=== PATIENT | female | born 1990 | race Two or more races ===

== ENCOUNTER 2018-09-15 14:56 | Emergency (ER) | payer OTHER ==
[2018-09-15] MEDS ORDERED: VALACYCLOVIR HCL 500 MG TABLET PO ONE (15:36)
[2018-09-15] MEDS ORDERED: LIDOCAINE 1% INJ-PF (10 MG/ML) 30 ML SDV INJ ONE (15:36)
[2018-09-15] MEDS ORDERED: CEFTRIAXONE INJ 250 MG VIAL IM ONE (15:36)
[2018-09-15] MEDS ORDERED: AZITHROMYCIN 250 MG TABLET PO ONE (15:36)
--- NOTE | 2018-09-15 15:54 | ER Document Report ---
ED GI/ - General Chief Complaint: Rash Stated Complaint: VAGINAL IRRITATION Time Seen by Provider: 09/15/18 15:07 Mode of Arrival: Ambulatory Information source: Patient Notes: 28-year-old female presented to ED for complaint of rash to her vaginal and rectal area. She also has burning and irritation. She is concerned about the rash. She denies any urinary symptoms no frequency urgency burning. She denies any medication. She denies any past medical history except for left ACL repair. Patient is concerned because she is supposed to deployed at [employer] tomorrow. Patient is alert and oriented his regular and unlabored speaking in full sentences. TRAVEL OUTSIDE OF THE [place] IN LAST 30 DAYS: No - HPI Patient complains to provider of: Vaginal discharge, Vaginal pain, Other - Vaginal rash Onset: Yesterday Timing/Duration: Gradual Quality of pain: Burning Severity at maximum: Moderate Severity in ED: Moderate Pain Level: 3 Location: Vaginal Sexual history: control pills Associated symptoms: Vaginal discharge, Other - Vaginal rash a few vesicles around the anus Exacerbated by: Other - Sexual intercourse Relieved by: Denies Similar symptoms previously: No Recently seen / treated by doctor: No - Related Data Allergies/Adverse Reactions: No Known Allergies Allergy (Unverified 09/15/18 15:02) Past Medical History - General Information source: Patient - Social History Smoking Status: Never Smoker Cigarette use (# per day): No Chew tobacco use (# tins/day): No Smoking Education Provided: No Frequency of alcohol use: Social Drug Abuse: None Occupation: active duty Lives with: Spouse/Significant other Family History: Reviewed & Not Pertinent Patient has suicidal ideation: No Patient has homicidal ideation: No - Past Medical History Cardiac Medical History: Reports: None Pulmonary Medical History: Reports: None EENT Medical History: Reports: None Neurological Medical History: Reports: None Endocrine Medical History: Reports: None Renal/ Medical History: Reports: None Malignancy Medical History: Reports: None GI Medical History: Reports: None Musculoskeletal Medical History: Reports Hx Musculoskeletal Trauma Skin Medical History: Reports None Psychiatric Medical History: Reports: None Traumatic Medical History: Reports: None Infectious Medical History: Reports: None Past Surgical History: Reports: Hx Orthopedic Surgery - left knee - Immunizations Immunizations up to date: Yes Hx Diphtheria, Pertussis, Tetanus Vaccination: Yes - Active-duty Review of Systems - Review of Systems Constitutional: No symptoms reported EENT: No symptoms reported Cardiovascular: No symptoms reported Respiratory: No symptoms reported Gastrointestinal: No symptoms reported Genitourinary: No symptoms reported Female Genitourinary: Vaginal discharge, Other - Vaginal and rectal vesicles Musculoskeletal: No symptoms reported Skin: No symptoms reported Hematologic/Lymphatic: No symptoms reported Neurological/Psychological: No symptoms reported -: Yes All other systems reviewed and negative Physical Exam - Vital signs Vitals: Temp Pulse Resp BP Pulse Ox 97.8 F 79 16 129/74 H 100 09/15/18 15:15 09/15/18 15:15 09/15/18 15:15 09/15/18 15:15 09/15/18 15:15 Interpretation: Normal - General General appearance: Appears well, Alert - HEENT Head: Normocephalic, Atraumatic Eyes: Normal Pupils: PERRL - Respiratory Respiratory status: No respiratory distress Chest status: Nontender Breath sounds: Normal Chest palpation: Normal - Cardiovascular Rhythm: Regular Heart sounds: Normal auscultation Murmur: No - Abdominal Inspection: Normal Distension: No distension Bowel sounds: Normal Tenderness: Nontender Organomegaly: No organomegaly - Rectal Tenderness: Yes - Vesicles noted around anus - Genitourinary External exam: Vesicles Speculum exam: Vaginal discharge - Back Back: Normal, Nontender - Extremities General upper extremity: Normal inspection, Nontender, Normal color, Normal ROM , Normal temperature General lower extremity: Normal inspection, Nontender, Normal color, Normal ROM , Normal temperature, Normal weight bearing. No: Hal's sign - Neurological Neuro grossly intact: Yes Cognition: Normal Orientation: AAOx4 [place] Coma Scale Eye Opening: Spontaneous [place] Coma Scale Verbal: Oriented [place] Coma Scale Motor: Obeys Commands Hever Coma Scale Total: 15 Speech: Normal Motor strength normal: LUE, RUE, LLE, RLE Sensory: Normal - Psychological Associated symptoms: Normal affect, Normal mood - Skin Skin Temperature: Warm Skin Moisture: Dry Skin Color: Normal Course - Re-evaluation Re-evalutation: 09/15/18 16:36 Patient came to the ED for lesions to the vaginal area itching to the vaginal area vaginal discharge. She does have vesicles to the vaginal area and rectal area and a herpes sample was sent to the lab. She was also tested for GC chlamydia and wet mount. Wet mount did come back with BV and yeast patient will call back to the emergency room for the results of her GC and chlamydia. She has been instructed to give phone number and email address and a family member who can get the results for the herpes culture as she will be deploying to [facility] tomorrow in the . 09/15/18 20:18 Patient did call back and received the results of the GC and chlamydia which were negative. - Vital Signs Vital signs: Temp Pulse Resp BP Pulse Ox 98 F 75 18 142/78 H 98 09/15/18 16:04 09/15/18 16:04 09/15/18 16:04 09/15/18 16:04 09/15/18 16:04 Discharge - Discharge Clinical Impression: Vaginal lesion, Bacterial vaginosis, Yeast vaginitis Condition: Stable Disposition: HOME, SELF-CARE Additional Instructions: VAGINOSIS, BACTERIAL: Your exam shows you have bacterial vaginosis. This condition is due to an overgrowth of bacteria in the vagina. Symptoms may include vaginal itching or pain, a smelly discharge, and sometimes burning with urination. Normally this is not transmitted by sexual contact. Vaginosis can be treated with oral or topical antibiotics. Metronidazole ( Flagyl) pills are usually effective. Topical vaginal creams include Cleocin and Metro-Gel. You should avoid sexual contact until your symptoms are all better. Call the doctor if you develop pelvic pain, fever, or problems with urination, or if you don't improve as expected. VAGINAL YEAST INFECTION: You have evidence of a yeast infection -- called "reynold." A vaginal yeast infection often causes itching and discharge. While not dangerous, it can be very unpleasant. A yeast infection often follows the use of powerful antibiotics. It is more likely to occur in diabetics. The treatment now is usually a single pill of Diflucan, but also an antifungal cream or suppository may be used for a few days. You do not need to avoid sexual intercourse. Recurrences are common. You can make a recurrence less likely by wearing cotton underwear and avoiding tight clothing. For mild recurrences, you can try [id number] creams or suppositories that are made specifically for yeast. If the symptoms do not resolve, you should follow up for re-examination. Sometimes treatment of the sexual partner is necessary if infections are recurrent. Genital Herpes Your exam suggests that you have a herpes infection. A culture can confirm the diagnosis. Herpes is caused by a virus, and can be transmitted sexually. After the initial infection has healed, the virus often erupts at the same location from time to time. Herpes can be treated with anti-viral medication. The medicine can be used as pills or ointment. It's most effective if started with the first symptoms of the attack. It is not a "cure" -- it simply shortens the length of the illness. If this is not your first attack, the medicine may not help you. In the female, herpes can infect the baby as it passes through the canal, causing a life-threatening disease. You should inform the classified ad taker that you've had herpes should you (or your spouse) become . Sexual contact should be avoided any time the sores are present, but the virus may be contagious even at other times. The use of condoms may help prevent infection in your partner. CEPHALOSPORINS: An antibiotic of the cephalosporin class has been prescribed. This type of antibiotic covers a wide variety of infections, including those of the skin, lungs, middle ear, and urinary tract. This antibiotic is somewhat similar to the penicillin family. In rare cases , a person who is allergic to penicillin will also be allergic to this medication. If you have had a severe allergic reaction to penicillin, and have not taken this antibiotic since that time, notify your doctor. Antibiotics which cover many germs ("broad spectrum" antibiotics) are more likely to cause diarrhea or "yeast" infections. Women prone to vaginal yeast problems may suffer an attack after taking this antibiotic. In infants, oral thrush (white spots "stuck" on the cheek) or yeast diaper rash may result. See your doctor if these problems occur. Call the doctor at once if you develop hives, itching, shortness of breath , or lightheadedness. AZITHROMYCIN: Azithromycin (Zithromax) is a broad spectrum antibiotic in the same class as erythromycin. It can treat a variety of bacterial infections, but is most frequently used for respiratory infections. Azithromycin is extremely long-lasting. It accumulates in body tissues and continues to kill bacteria for many days. In order to improve absorption, Azithromycin should be taken at least one hour before or two hours after a meal. It does not have the same strong tendency to upset the stomach as erythromycin and is usually very well tolerated. Patients who have had a rash or other true allergic reactions to erythromycin should not take this medication. Call if you develop gastrointestinal distress, severe diarrhea, rash, hives, itching, or shortness of breath. METRONIDAZOLE: Metronidazole (Flagyl) has been prescribed. This medication is used to kill a type of bacteria called anaerobes, and protozoan parasites such as trichomonas and Giardia. Flagyl often causes a metallic taste in the mouth and mild nausea. Do not use alcohol in any form with Flagyl (including alcohol in medication elixirs). Flagyl interacts with alcohol to cause flushing, palpitations, headache, stomach cramps, and vomiting. Do not use Flagyl if you are taking Antabuse (disulfiram). Call the doctor at once if you develop rash, shortness of breath, itching, or lightheadedness. FLUCONAZOLE: Fluconazole (Diflucan) is an antifungal drug. It is useful for serious fungal infections, but is also excellent for oral or vaginal yeast infections. Diflucan interacts with some medicines. This is a concern if you are taking anticoagulants (such as Coumadin), phenytoin (Dilantin), cyclosporin, or oral hypoglycemics (such as tolbutamide, Orinase, glipizide, Glucotrol, glyburide, DiaBeta, Glynase, and Micronase). Be sure the doctor knows if you are taking one of these medicines. We don't know how Diflucan affects . If you are planning to become , discuss this with your doctor. Diflucan has few side effects. Minor side effects may include nausea, headache, or diarrhea. Call the doctor if you develop a skin rash, shortness of breath, or other new symptoms. FOLLOW-UP CARE: If you have been referred to a physician for follow-up care, call the physician s office for an appointment as you were instructed or within the next two days. If you experience worsening or a significant change in your symptoms, notify the physician immediately or return to the Emergency Department at any time for re-evaluation. Prescriptions: Fluconazole [Diflucan] 150 mg PO ONCE PRN #2 tablet PRN Reason: Metronidazole [Flagyl 500 mg Tablet] 500 mg PO BID #14 tablet Valacyclovir HCl [Valtrex] 1,000 mg PO BID #20 tablet Forms: Elevated Blood Pressure
[2018-09-15 15:56] LABS: BACTERIA (WET MOUNT) 3+ BACTERIA SEEN; EPITHELIALS (WET MOUNT) 4+ EPITHELIALS SEEN; RBCS (WET MOUNT) RARE RBCS SEEN; T.VAGINALIS (WET MOUNT) NO TRICHOMONAS SEEN; WBCS (WET MOUNT) 2+ WBCS SEEN; YEAST (WET MOUNT) YEAST SEEN
[2018-09-15 16:04] VITALS: BP 142/78
[2018-09-15] MEDS ORDERED: METRONIDAZOLE 500 MG TABLET PO ONE (16:24)
[2018-09-15 17:11] LABS: CHLAM PCR NOT DETECTED (NOT DETECT); GON PCR NOT DETECTED (NOT DETECT)
== END 2018-09-15 16:47 | disposition home or self-care (01) ==
LOC: ER 14:56
DX: N76.0 Acute vaginitis (principal); B96.89 Other specified bacterial agents as the cause of diseases classified elsewhere; B37.3 Candidiasis of vulva and vagina
CPT/HCPCS: 99283; 96372; 87210; 87250; 87491; 87591; J3490; J0696

== ENCOUNTER 2019-03-18 09:16 | Emergency (ER) | payer OTHER ==
--- NOTE | 2019-03-18 09:55 | ER Document Report ---
ED Medical Screen (RME) - General Chief Complaint: Vaginal Discharge Stated Complaint: VAGINAL DISCHARGE Time Seen by Provider: 03/18/19 09:53 Mode of Arrival: Ambulatory Information source: Patient Notes: 28-year-old female presents to ED for complaint of itchy discomfort in her vagina now. She states that her last menstrual period started on 4 7. States that usually last 4 days but this 1 lasted about 7 and then since her periods stopped she has had clumpy kimball discharge with no odor but has had a lot of itching and discomfort inside since then. She states this is totally unusual fo r her. She states she is also has genital herpes and she does not know if this is a new outbreak of genital herpes and she needs to be examined to see was going on. Patient is alert oriented respirations regular and unlabored speaking in full sentences. I have greeted and performed a rapid initial assessment of this patient. A comprehensive ED assessment and evaluation of the patient, analysis of test results and completion of medical decision making process will be conducted by an additional ED providers. TRAVEL OUTSIDE OF THE [place] 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
[2019-03-18 10:40] LABS: APPEARANCE,URINE CLEAR; BILIRUBIN,URINE NEGATIVE (NEGATIVE); COLOR,URINE YELLOW; GLUCOSE, URINE NEGATIVE (NEGATIVE); KETONES,URINE NEGATIVE (NEGATIVE); LEUKOCYTE ESTERASE,URINE NEGATIVE (NEGATIVE); NITRITE,URINE NEGATIVE (NEGATIVE); PROTEIN,URINE NEGATIVE (NEGATIVE); URINE SPECIFIC GRAVITY 1.024; UROBILINOGEN,URINE NEGATIVE mg/dL (<2.0)
[2019-03-18 11:11] LABS: T.VAGINALIS (WET MOUNT) NO TRICHOMONAS SEEN; WBCS (WET MOUNT) FEW WBCS SEEN; YEAST (WET MOUNT) YEAST SEEN
--- NOTE | 2019-03-18 11:11 | ER Document Report ---
ED General - General Chief Complaint: Vaginal Discharge Stated Complaint: VAGINAL DISCHARGE Time Seen by Provider: 03/18/19 09:53 Mode of Arrival: Ambulatory TRAVEL OUTSIDE OF THE [place] IN LAST 30 DAYS: No - HPI Notes: Patient is a 28-year-old female that presents to the emergency department for chief complaint of vaginal discharge. Patient reports 4 days have thick white vaginal discharge. She states she has some itching and irritation of her vagina. She did have intercourse yesterday that was unprotected and states it was uncomfortable. She denies associated vaginal bleeding. LMP was about a week ago. She denies history of or concern for currently. She is sexually active without protection and is concerned for possible STDs. She reports a history of herpes simplex and denies any painful active lesions currently. Patient does states she has had yeast infections and states this feels similar. She denies associated fevers and urinary complaints Past Medical History: Herpes Past Surgical History: Vaginal cyst removal Social History: Occasional alcohol. Denies tobacco and drug use Family History: Reviewed and noncontributory for presenting illness Allergies: Reviewed, see documented allergy list. REVIEW OF SYSTEMS: CONSTITUTIONAL : No fever No chills No diaphoresis No recent illness EENT: No vision changes No congestion No sore throat CARDIOVASCULAR: No chest pain No palpitations RESPIRATORY: No shortness of breath No cough No difficulty breathing GASTROINTESTINAL: No abdominal pain No nausea No vomiting No diarrhea GENITOURINARY: Vaginal discharge No dysuria No hematuria No difficulty urinating MUSCULOSKELETAL: No back pain No leg pain No arm pain SKIN: No rashes No lesions LYMPHATIC: No swollen, enlarged glands. NEUROLOGICAL: No lightheadedness No headache No weakness No paresthesias PSYCHIATRIC: No anxiety No depression PHYSICAL EXAMINATION: Vital signs reviewed, nursing noted reviewed. GENERAL: Well-appearing, well-nourished and in no acute distress. HEAD: Atraumatic, normocephalic. EYES: Eyes appear normal, extraocular movements intact, sclera anicteric, conjunctiva are normal. ENT: nares patent, oropharynx clear without exudates. Moist mucous membranes. NECK: Normal range of motion, supple without lymphadenopathy LUNGS: Breath sounds clear to auscultation bilaterally and equal. No wheezes rales or rhonchi. HEART: Regular rate and rhythm without murmurs ABDOMEN: Soft, nontender, normoactive bowel sounds. No rebound, guarding, or rigidity. No masses appreciated. : Normal external vaginal genitalia with no active herpetic appearing lesions. Thick white vaginal discharge. No cervical motion tenderness or lesions. No adnexal tenderness or fullness. Uterus soft, midline and nontender. No vaginal bleeding tender EXTREMITIES: Nontender, good range of motion, no pitting or edema. NEUROLOGICAL: No focal neurological deficits. Moves all extremities spontaneously Motor and sensory grossly intact on exam. PSYCH: Normal mood, normal affect. SKIN: Warm, Dry, normal turgor, no rashes or lesions noted on exposed skin - Related Data Allergies/Adverse Reactions: No Known Allergies Allergy (Verified 03/18/19 09:19) Past Medical History - General Information source: Patient - Social History Smoking Status: Never Smoker Chew tobacco use (# tins/day): No Frequency of alcohol use: None Drug Abuse: None Family History: Reviewed & Not Pertinent Patient has suicidal ideation: No Patient has homicidal ideation: No Renal/ Medical History: Denies: Hx Peritoneal Dialysis Musculoskeletal Medical History: Reports Hx Musculoskeletal Trauma Past Surgical History: Reports: Hx Orthopedic Surgery - left knee - Immunizations Immunizations up to date: Yes Hx Diphtheria, Pertussis, Tetanus 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 Nursing notes reviewed. 03/18/19 11:22 Patient's pelvic exam is consistent with yeast infection. She has positive for yeast on testing. There is no bacterial vaginitis or trichomonas. Gonorrhea and Chlamydia cultures are currently pending however she has no discharged or pain concerning for acute infection to suggest prophylactic treatment as indicated. Patient will call in 24 hours for her testing results. [facility] She was given Diflucan for yeast infection. Laboratory 03/18/19 03/18/19 10:05 10:57 Urine Color YELLOW Urine Appearance CLEAR Urine pH 6.0 Ur Specific [place] 1.024 Urine Protein NEGATIVE Urine Glucose (UA) NEGATIVE Urine Ketones NEGATIVE Urine Blood NEGATIVE Urine Nitrite NEGATIVE Urine Bilirubin NEGATIVE Urine Urobilinogen NEGATIVE Ur Leukocyte Esterase NEGATIVE Urine WBC (Auto) 1 Urine RBC (Auto) 1 Squamous Epi Cells Auto 1 Urine Mucus (Auto) OCC Urine Ascorbic Acid 40 H Urine HCG, Qual NEGATIVE Trichomonas (Wet Prep) NO TRICHOMONAS SEEN Vaginal WBC FEW WBCS SEEN Vaginal RBC FEW RBCS SEEN Vaginal Yeast YEAST SEEN - Vital Signs Vital signs: Temp Pulse Resp BP Pulse Ox 98.2 F 62 16 135/73 H 100 03/18/19 09:23 03/18/19 09:23 03/18/19 09:23 03/18/19 09:23 03/18/19 09:23 - Laboratory Laboratory results interpreted by me: 03/18/19 10:05 Urine Ascorbic Acid 40 H Discharge - Discharge Clinical Impression: Yeast vaginitis Condition: Stable Disposition: HOME, SELF-CARE Instructions: Vaginal Yeast Infection ([facility]) Additional Instructions: Please return to the emergency department if you have any worsening, or concern of your symptoms. Please return to the emergency department if you develop chest pain, difficulty breathing, severe abdominal pain, or ongoing vomiting. Please follow-up with your primary care physician in 2-3 days and any other recommended physicians. If prescribed, take all medications as directed. If you have any questions or concerns do not hesitate to return the emergency department for evaluation. Gonorrhea and Chlamydia testing was performed today and is not resulted. Call in 24 hours for your results Prescriptions: Fluconazole [Diflucan] 150 mg PO ONCE PRN #1 tablet PRN Reason: Referrals: [facility] [Provider Group] - Follow up in 1 week
[2019-03-18 11:12] LABS: RBCS (WET MOUNT) FEW RBCS SEEN
[2019-03-18] MEDS ORDERED: FLUCONAZOLE 100 MG TABLET PO ONE (11:23)
[2019-03-18 11:32] VITALS: BP 132/62
[2019-03-18 12:06] LABS: CHLAM PCR NOT DETECTED (NOT DETECT); GON PCR NOT DETECTED (NOT DETECT)
== END 2019-03-18 11:37 | disposition home or self-care (01) ==
LOC: ER 09:16
DX: B37.3 Candidiasis of vulva and vagina (principal); A60.00 Herpesviral infection of urogenital system, unspecified; N89.8 Other specified noninflammatory disorders of vagina
CPT/HCPCS: 81001; 81025; 87210; 87491; 87591; 99283

== ENCOUNTER 2019-04-26 09:51 | Emergency (ER) | payer OTHER ==
[2019-04-26] MEDS ORDERED: DOCUSATE SODIUM 100 MG CAPSULE BTH_EAR ONE (10:29)
--- NOTE | 2019-04-26 10:30 | ER Document Report ---
ED ENT - General Chief Complaint: Ear Pain Stated Complaint: LEFT EAR PAIN Time Seen by Provider: 04/26/19 10:11 Mode of Arrival: Ambulatory Information source: Patient Notes: 28-year-old female presented to ED for complaint of left ear pain for 2 days along with pain to the left jaw. She also has a congested nose. Patient is alert oriented respirations regular and unlabored speaking in full sentences walks with even steady gait. TRAVEL OUTSIDE OF THE [place] IN LAST 30 DAYS: No - HPI Patient complains to provider of: Ear problem Onset: Other Onset/Duration: Gradual - 2 days Quality of pain: Achy Severity: Moderate Pain Level: 2 Context: Recent Illness Location of pain: Ears Associated symptoms: Ear pain Similar symptoms previously: Yes - Related Data Allergies/Adverse Reactions: No Known Allergies Allergy (Verified 04/26/19 09:52) Past Medical History - General Information source: Patient - Social History Smoking Status: Never Smoker Chew tobacco use (# tins/day): No Frequency of alcohol use: None Drug Abuse: None Lives with: Family Family History: Reviewed & Not Pertinent Patient has suicidal ideation: No Patient has homicidal ideation: No - Past Medical History Cardiac Medical History: Reports: None Pulmonary Medical History: Reports: None EENT Medical History: Reports: None Neurological Medical History: Reports: None Endocrine Medical History: Reports: None Renal/ Medical History: Reports: None Malignancy Medical History: Reports: None GI Medical History: Reports: None Musculoskeletal Medical History: Reports Hx Musculoskeletal Trauma Skin Medical History: Reports None Psychiatric Medical History: Reports: None Traumatic Medical History: Reports: None Infectious Medical History: Reports: None Past Surgical History: Reports: Hx Orthopedic Surgery - left knee - Immunizations Immunizations up to date: Yes Hx Diphtheria, Pertussis, Tetanus Vaccination: Yes - Active-duty Review of Systems - Review of Systems Constitutional: No symptoms reported EENT: Ear pain, Mouth pain Cardiovascular: No symptoms reported Respiratory: No symptoms reported Gastrointestinal: No symptoms reported Genitourinary: No symptoms reported Female Genitourinary: No symptoms reported Musculoskeletal: No symptoms reported Skin: No symptoms reported Hematologic/Lymphatic: No symptoms reported Neurological/Psychological: No symptoms reported -: Yes All other systems reviewed and negative Physical Exam - Vital signs Vitals: Temp Pulse Resp BP Pulse Ox 98.3 F 66 16 120/73 97 04/26/19 10:05 04/26/19 10:05 04/26/19 10:05 04/26/19 10:05 04/26/19 10:05 Interpretation: Normal - General General appearance: Appears well, Alert - HEENT Head: Normocephalic, Atraumatic Eyes: Normal Pupils: PERRL Ears: Normal External canal: Cerumen impaction - Bilateral Tympanic membrane: Normal - After wax removed Sinus: Normal Nasal: Normal Mouth/Lips: Normal Mucous membranes: Normal Pharynx: Normal Neck: Normal - Respiratory Respiratory status: No respiratory distress Chest status: Nontender Breath sounds: Normal Chest palpation: Normal - Cardiovascular Rhythm: Regular Heart sounds: Normal auscultation Murmur: No - Abdominal Inspection: Normal Distension: No distension Bowel sounds: Normal Tenderness: Nontender Organomegaly: No organomegaly - Back Back: Normal, Nontender - Extremities General upper extremity: Normal inspection, Nontender, Normal color, Normal ROM, Normal temperature General lower extremity: Normal inspection, Nontender, Normal color, Normal ROM, Normal temperature, Normal weight bearing. No: Hal's sign - Neurological Neuro grossly intact: Yes Cognition: Normal Orientation: AAOx4 [place] Coma Scale Eye Opening: Spontaneous [place] Coma Scale Verbal: Oriented [place] Coma Scale Motor: Obeys Commands [place] Coma Scale Total: 15 Speech: Normal Motor strength normal: LUE, RUE, LLE, RLE Sensory: Normal - Psychological Associated symptoms: Normal affect, Normal mood - Skin Skin Temperature: Warm Skin Moisture: Dry Skin Color: Normal Course - Vital Signs Vital signs: Temp Pulse Resp BP Pulse Ox 98.3 F 66 16 120/73 97 04/26/19 10:05 04/26/19 10:05 04/26/19 10:05 04/26/19 10:05 04/26/19 10:05 Procedures - Additional Procedures Cerebrum disimpaction Time performed: 12:04 Notes: 04/26/19 12:04 200 mg Colace instilled into left ear waited 30 minutes irrigated with one half warm water and peroxide. Then did the same to the right ear. Discharge - Discharge Clinical Impression: Cerebrum impaction bilateral Condition: Stable Disposition: HOME, SELF-CARE Instructions: Family Physicians / Practices Additional Instructions: Cerumen Impaction The physician found a severe buildup of earwax in your ear canal, called a cerumen impaction. A large plug of wax can cause earache, decreased hearing, or itching. It can even lead to infection of the outer ear. An impaction of earwax can be removed by the physician using special instruments, or can be irrigated out using a stream of water (often a little of both is required). Some less severe impactions are removed using ear drops that dissolve wax. In the future, don't get soap in your ear canal. Soap doesn't remove wax -- it simply hardens it in place. Don't use cotton swabs. These just push the wax into large clumps, where it doesn't flow out normally. Dust and smoke also contribute to wax buildup. Earwax softening drops are available without prescription, and can be used periodically. Contact the doctor if you develop decreased hearing, earache, drainage from the ear, or severe headache. You can use Colace capsule poke holes in it with a needle and squeezed the juice into your ear. Let this sit 25 to 30 minutes then irrigate with bulb syringe and [id number] peroxide and warm water. This will get the wax out. FOLLOW-UP CARE: If you have been referred to a physician for follow-up care, call the physicians office for an appointment as you were instructed or within the next two days. If you experience worsening or a significant change in your symptoms, notify the physician immediately or return to the Emergency Department at any time for re-evaluation.
[2019-04-26 12:12] VITALS: BP 119/68
== END 2019-04-26 12:12 | disposition home or self-care (01) ==
LOC: ER 09:51
DX: H61.23 Impacted cerumen, bilateral (principal); H92.02 Otalgia, left ear; R68.84 Jaw pain; R09.81 Nasal congestion
CPT/HCPCS: 99282

== ENCOUNTER 2019-07-24 08:22 | Emergency (ER) | payer OTHER ==
--- NOTE | 2019-07-24 08:34 | ER Document Report ---
ED General - General Chief Complaint: Vaginal Itching Stated Complaint: VAGINAL IRRITATION Time Seen by Provider: 07/24/19 08:32 TRAVEL OUTSIDE OF THE [place] IN LAST 30 DAYS: No - HPI Notes: 28-year-old female to the emergency department with complaints of vaginal itching and irritation for the past several days. She states that she noticed a white thick discharge yesterday. She had a Diflucan at home and took that yesterday. She states that however today her symptoms have worsened and she has now even thicker white discharge and is itching. She states that she has a history of genital herpes but has not noticed any lesions or outbreak. She denies any urinary complaints. She states her last menstrual period was July 03 but it was a little early. She does take Anila. She is sexually active with the same partner for 1 year. She has a low suspicion for any other STDs. She does also report history of migraines and had one yesterday. She does note that with it yesterday she had some nausea and vomiting. She typically takes Excedrin and it does okay. She does not have a migraine headache today. She does notice it during certain times when she is taking her Anila. She has not seen an STATION HELPER for further evaluation of her Anila or for this vaginal itching. - Related Data Allergies/Adverse Reactions: No Known Allergies Allergy (Verified 07/24/19 08:24) Past Medical History - General Information source: Patient - Social History Smoking Status: Never Smoker Frequency of alcohol use: Social Drug Abuse: None Family History: Reviewed & Not Pertinent Renal/ Medical History: Denies: Hx Peritoneal Dialysis Musculoskeletal Medical History: Reports Hx Musculoskeletal Trauma Past Surgical History: Reports: Hx Orthopedic Surgery - left knee - Immunizations Immunizations up to date: Yes Hx Diphtheria, Pertussis, Tetanus Vaccination: Yes - Active-duty Review of Systems - Review of Systems Constitutional: denies: Chills, Fever EENT: No symptoms reported Cardiovascular: denies: Chest pain, Palpitations, Dyspnea, Syncope, Dizziness, Lightheaded Respiratory: denies: Cough, Short of breath Gastrointestinal: denies: Abdominal pain, Diarrhea, Nausea, Vomiting Genitourinary: denies: Burning, Dysuria, Frequency, Flank pain, Hematuria Female Genitourinary: See HPI, Last menstrual period - July 03, Vaginal discharge, Other - Vaginal itching Musculoskeletal: No symptoms reported Skin: No symptoms reported Hematologic/Lymphatic: No symptoms reported Neurological/Psychological: No symptoms reported -: Yes All other systems reviewed and negative Physical Exam - Vital signs Vitals: Temp Pulse Resp BP Pulse Ox 98.1 F 66 20 127/76 H 98 07/24/19 08:25 07/24/19 08:25 07/24/19 08:25 07/24/19 08:25 07/24/19 08:25 Interpretation: Normal - General General appearance: Appears well, Alert In distress: None - HEENT Head: Normocephalic, Atraumatic Eyes: Normal Pupils: PERRL - Respiratory Respiratory status: No respiratory distress Chest status: Nontender Breath sounds: Normal Chest palpation: Normal - Cardiovascular Rhythm: Regular Heart sounds: Normal auscultation Murmur: No - Abdominal Inspection: Normal Distension: No distension Bowel sounds: Normal Tenderness: Nontender Organomegaly: No organomegaly - Genitourinary External exam: Normal. No: Lesions Speculum exam: Cervix closed, Vaginal discharge. No: Lesions, Vaginal lacerations Vaginal bleeding: None Bimanuel exam: Normal. No: Cervical motion tender, Bladder/Urethral tender, Adnexal mass, Adnexal tenderness, Uterus enlarged Notes: Speculum exam reveals thick white discharge. There is no evidence for vesicular lesions or vaginal trauma. There is no cervical motion tenderness or adnexal tenderness. Specimens were obtained. Exam was chaperoned by JAX Velázquez. - Back Back: Normal, Nontender. No: CVA tenderness - Neurological Neuro grossly intact: Yes Cognition: Normal Orientation: AAOx4 Hever Coma Scale Eye Opening: Spontaneous [place] Coma Scale Verbal: Oriented [place] Coma Scale Motor: Obeys Commands [place] Coma Scale Total: 15 Speech: Normal Motor strength normal: LUE, RUE, LLE, RLE Sensory: Normal - Psychological Associated symptoms: Normal affect, Normal mood - Skin Skin Temperature: Warm Skin Moisture: Dry Skin Color: Normal Course - Re-evaluation Re-evalutation: 07/24/19 10:16 Laboratory 07/24/19 07/24/19 08:56 09:08 Urine Color YELLOW Urine Appearance CLEAR Urine pH 6.0 Ur Specific [place] 1.018 Urine Protein NEGATIVE Urine Glucose (UA) NEGATIVE Urine Ketones NEGATIVE Urine Blood NEGATIVE Urine Nitrite NEGATIVE Urine Bilirubin NEGATIVE Urine Urobilinogen NEGATIVE Ur Leukocyte Esterase NEGATIVE Urine WBC (Auto) 1 Urine RBC (Auto) 1 Urine Bacteria (Auto) TRACE Squamous Epi Cells Auto 2 Urine Mucus (Auto) RARE Urine Ascorbic Acid NEGATIVE Urine HCG, Qual NEGATIVE Epi Cells (Wet Prep) 3+ EPITHELIALS SEEN Bacteria (Wet Prep) 3+ BACTERIA SEEN Trichomonas (Wet Prep) NO TRICHOMONAS SEEN Vaginal WBC 1+ WBCS SEEN Vaginal RBC RARE RBCS SEEN Vaginal Yeast YEAST SEEN Impression: Bacterial vaginosis and yeast infection. Will start on Flagyl as well as Diflucan. Noted negative test and urinalysis that is not consistent with a urinary tract infection. Will send patient for outpatient EXCHANGE OPERATOR follow-up. Have encouraged to return if any worsening symptoms such as intractable vomiting, pain, worsening discharge, or fevers. Patient agrees with the plan. - Vital Signs Vital signs: Temp Pulse Resp BP Pulse Ox 98.1 F 66 20 127/76 H 98 07/24/19 08:25 07/24/19 08:25 07/24/19 08:25 07/24/19 08:25 07/24/19 08:25 Procedures - Pelvic Exam Pelvic exam Cultures obtained: Yes Wet prep obtained: Yes Herpes culture obtained: No Foreign body removed: No Bimanual exam performed: Yes Witnessed by: JAX Velázquez Notes: 07/24/19 see PE for further discussion of Pelvic exam findings. Discharge - Discharge Clinical Impression: Bacterial vaginosis, Yeast infection of the vagina Condition: Stable Disposition: HOME, SELF-CARE Instructions: Vaginosis, Bacterial ([facility]), Vaginal Yeast Infection ([facility]) Additional Instructions: TAKE MEDICINES PRESCRIBED. FOLLOW UP WITH EXCHANGE OPERATOR LISTED. RETURN IF WORSENING PAIN, FEVERS, VOMITING, OR ANY OTHER CONCERNS. Prescriptions: Fluconazole [Diflucan 100 Mg Tablet] 100 mg PO ASDIR #3 tablet Metronidazole [Flagyl 500 mg Tablet] 500 mg PO BID #14 tablet Referrals: TRICIA ESPINOSA DO [ACTIVE STAFF] - Follow up as needed
[2019-07-24 09:17] LABS: BACTERIA (WET MOUNT) 3+ BACTERIA SEEN; EPITHELIALS (WET MOUNT) 3+ EPITHELIALS SEEN; RBCS (WET MOUNT) RARE RBCS SEEN; T.VAGINALIS (WET MOUNT) NO TRICHOMONAS SEEN; WBCS (WET MOUNT) 1+ WBCS SEEN; YEAST (WET MOUNT) YEAST SEEN
[2019-07-24 09:20] LABS: APPEARANCE,URINE CLEAR; BILIRUBIN,URINE NEGATIVE (NEGATIVE); COLOR,URINE YELLOW; GLUCOSE, URINE NEGATIVE (NEGATIVE); KETONES,URINE NEGATIVE (NEGATIVE); LEUKOCYTE ESTERASE,URINE NEGATIVE (NEGATIVE); NITRITE,URINE NEGATIVE (NEGATIVE); PROTEIN,URINE NEGATIVE (NEGATIVE); URINE SPECIFIC GRAVITY 1.018; UROBILINOGEN,URINE NEGATIVE mg/dL (<2.0)
[2019-07-24 10:38] VITALS: BP 117/66
[2019-07-24 10:47] LABS: CHLAM PCR NOT DETECTED (NOT DETECT)
== END 2019-07-24 10:21 | disposition home or self-care (01) ==
LOC: ER 08:22
DX: N76.0 Acute vaginitis (principal); B96.89 Other specified bacterial agents as the cause of diseases classified elsewhere; B37.3 Candidiasis of vulva and vagina; L29.2 Pruritus vulvae
CPT/HCPCS: 81001; 81025; 87210; 87491; 87591; 99283

== ENCOUNTER 2020-06-18 14:49 | Emergency (ER) | payer OTHER ==
--- NOTE | 2020-06-18 17:15 | ER Document Report ---
ED Medical Screen (RME) - General Chief Complaint: Sore Throat Stated Complaint: SORE THROAT/CHILLS Time Seen by Provider: 06/18/20 17:09 Mode of Arrival: Ambulatory Information source: Patient Notes: HPI; 29 y/o female complaining of fever, chills, body aches, st since last night no meds for treatment. Eating and drinking normally. No COVID 19 exposure. no recent travel. PE:Alert and oriented x 3, Lungs. CTA without rales, rhonchi or wheezes. Heart: RRR without murmurs, rubs, gallops. Posterior pharnygeal erythema without exudate. I have greeted and performed a rapid initial assessment of this patient. A comprehensive ED assessment and evaluation of the patient, analysis of test results and completion of the medical decision making process will be conducted by additional ED providers. I have specifically instructed the patient or family members with the patient to immediately return to any nursing staff should anything change in the patient's condition or with their chief complaint. TRAVEL OUTSIDE OF THE [place] IN LAST 30 DAYS: No - Related Data Allergies/Adverse Reactions: No Known Allergies Allergy (Verified 07/24/19 08:24) Past Medical History Renal/ Medical History: Denies: Hx Peritoneal Dialysis Musculoskeltal Medical History: Reports Hx Musculoskeletal Trauma Past Surgical History: Reports: Hx Orthopedic Surgery - left knee - Immunizations Immunizations up to date: Yes Hx Diphtheria, Pertussis, Tetanus Vaccination: Yes - Active-duty Physical Exam - Vital signs Vitals: Temp Pulse Resp BP Pulse Ox 98.6 F 77 18 128/73 H 100 06/18/20 16:32 06/18/20 16:32 06/18/20 16:32 06/18/20 16:32 06/18/20 16:32 Course - Vital Signs Vital signs: Temp Pulse Resp BP Pulse Ox 98.6 F 77 18 128/73 H 100 06/18/20 16:32 06/18/20 16:32 06/18/20 16:32 06/18/20 16:32 06/18/20 16:32
[2020-06-18 17:53] LABS: A TYPE INFLUENZA AG NEGATIVE (NEGATIVE); B INFLUENZA AG NEGATIVE (NEGATIVE)
--- NOTE | 2020-06-18 18:15 | ER Document Report ---
ED General - General Chief Complaint: Flu Symptoms Stated Complaint: SORE THROAT/CHILLS Time Seen by Provider: 06/18/20 17:09 Mode of Arrival: Ambulatory Notes: 29-year-old woman presents to the emergency department a history of onset of sore throat with associated fatigue, body aches and pains and nonproductive cough/congestion. She denies a known history of exposure to coronavirus positive individual. She is concerned however that her symptoms may represent an infection. She denies nausea, vomiting, diarrhea, loss of taste or smell. Is an otherwise healthy 29-year-old with out known medical diagnoses or me dication use. TRAVEL OUTSIDE OF THE [place] IN LAST 30 DAYS: No - Related Data Allergies/Adverse Reactions: No Known Allergies Allergy (Verified 06/18/20 17:15) Past Medical History - General Information source: Patient - Social History Smoking Status: Former Smoker Family History: Reviewed & Not Pertinent Patient has homicidal ideation: No Renal/ Medical History: Denies: Hx Peritoneal Dialysis Musculoskeletal Medical History: Reports Hx Musculoskeletal Trauma Past Surgical History: Reports: Hx Orthopedic Surgery - left knee - Immunizations Immunizations up to date: Yes Hx Diphtheria, Pertussis, Tetanus Vaccination: Yes - Active-duty Review of Systems - Review of Systems Notes: Constitutional: + Low-grade fever, fatigue HENT: + Sore throat. Eyes: Negative for visual changes. Cardiovascular: Negative for chest pain. Respiratory: + Cough, no shortness of breath. Gastrointestinal: Negative for abdominal pain, vomiting or diarrhea. Genitourinary: Negative for dysuria. Musculoskeletal: + Myalgias Skin: Negative for rash. Neurological: Negative for headaches, weakness or numbness. 10 point ROS negative except as marked above and in HPI. Physical Exam - Vital signs Vitals: Temp Pulse Resp BP Pulse Ox 98.6 F 77 18 128/73 H 100 06/18/20 16:32 06/18/20 16:32 06/18/20 16:32 06/18/20 16:32 06/18/20 16:32 - Notes Notes: PHYSICAL EXAMINATION: Physical Exam: General: Well-nourished well-developed 9-year-old female in no acute distress HEENT: NC/AT, pupils equal round and reactive to light, MM moist,nares clear, oropharynx clear, airway patent Neck: supple, no adenopathy, no masses. Good range of motion Lungs: Clear bilaterally with no wheezes rales or rhonchi CVS: Regular rate and rhythm no murmur gallop or rub Abdomen: Soft, active, nontender, no masses, no hepatosplenomegaly Ext: No edema, clubbing or cyanosis. Neuro: Alert and responsive, moving all 4 extremities on command, cranial nerves intact, no focal findings Skin: Intact no open lesions, no rash Course - Re-evaluation Re-evalutation: 06/18/20 18:13 Patient presents with low-grade temperature, cough and body aches. Evaluation for influenza and strep are negative. Given her presentation, coronavirus screening test is being performed. I have instructed the patient that she will need to self isolate until she received a report of the test results. The patient acknowledges that she has been tested for COVID-19, and will self isolate at home until she receives results. May use Tylenol or ibuprofen for fever, aches and pains. She is also instructed to return to the hospital if her symptoms are worsening or development of shortness of breath. - Vital Signs Vital signs: Temp Pulse Resp BP Pulse Ox 98.7 F 78 16 125/69 98 06/18/20 17:27 06/18/20 17:27 06/18/20 17:27 06/18/20 17:27 06/18/20 17:27 - Laboratory Laboratory results interpreted by me: 06/18/20 18:12 I have reviewed laboratory data and used this information for the treatment decisions regarding the patient. Discharge - Discharge Clinical Impression: Suspected 2019 novel coronavirus infection Condition: Good Disposition: HOME, SELF-CARE Instructions: COVID-19 Guidance for Persons Under Investigation Additional Instructions: You may use Tylenol or ibuprofen for sore throat and body aches and pains, fever if needed. HOME CARE INSTRUCTIONS & INFORMATION: Thank you for choosing us for your medical needs. We hope you're satisfied with the care you received. After you leave, you must properly care for your problem and, at the same time, observe its progress. Any condition can change. Some illnesses can change rapidly over hours or days. If your condition worsens, return to the Emergency Department or see your physician promptly. ABOUT YOUR X-RAYS AND EKG'S: If you had an EKG or X-rays taken, they have been read by the Emergency Physician. The X-rays and EKG's will also be read by a Radiologist or County Judge within 24 hours. If discrepancies are noted, you will be notified by telephone. Please be certain the ED has a correct telephone number & address where you can be reached. Also, realize that some fractures or abnormalities do not show up on initial X-rays. If your symptoms continue, see your physician. ABOUT YOUR LABORATORY TEST: If you had laboratory tests, the results have been reviewed by the Emergency Physician. Some test results (for example cultures) may not be available for several days. You will be contacted if any test result shows you need additional treatment. Please be certain the ED has a correct telephone number and address where you can be reached. ABOUT YOUR MEDICATIONS: You will receive instructions on how to take your medicine on the prescription label you receive. Additional information may be provided by the Pharmacy. If you have questions afterwards, call the ED for clarification or further instructions. Some prescribed medications may cause drowsiness. Do not perform tasks such as driving a car or operating machinery without consulting your Pharmacist. If you feel you need a refill of pain medication, your condition will need re-evaluation. Please do not call for a refill of any medication. ABOUT YOUR SIGNATURE: Signature of this document acknowledges to followin. Understanding that you received emergency treatment and that you may be released before al medical problems are known or treated. Please be certain the ED has a correct phone number & address where you can be reached. 2. Acknowledgement that you will arrange for follow-up care as recommended. 3. Authorization for the Emergency Physician to provide information to your follow-up Physician in order to maximize your care. AT ANY TIME, IF YOUR SYMPTOMS CHANGE SIGNIFICANTLY OR WORSEN OR YOU DEVELOP NEW SYMPTOMS, RETURN TO THE EMERGENCY DEPARTMENT IMMEDIATELY FOR RE-EVALUATION. OUR GOAL IS TO PROVIDE EXCELLENT MEDICAL CARE! WE HOPE THAT WE HAVE MET YOUR EXPECTATIONS DURING YOUR EMERGENCY DEPARTMENT VISIT AND THAT YOU FEEL YOU HAVE RECEIVED EXCELLENT CARE!
[2020-06-18 18:44] VITALS: BP 128/77
== END 2020-06-18 18:44 | disposition home or self-care (01) ==
LOC: ER 14:49
DX: U07.1 COVID-19 (principal); J02.9 Acute pharyngitis, unspecified; R50.9 Fever, unspecified; M79.10 Myalgia, unspecified site; R05 Cough
CPT/HCPCS: 99283; 87070; 87880; 87635; 87804; C9803